=== PATIENT | female | born 1970 | race African-American/Black ===

== ENCOUNTER 2021-05-17 09:46 | Emergency (ER) | payer BC ==
[~2021-05-17] VITALS: Ht 162.6 cm; Wt 100.9 kg
[2021-05-17 10:39] LABS: BILIRUBIN,URINE NEGATIVE (NEG); CLARITY,URINE CLEAR; COLOR,URINE YELLOW; NITRITE,URINE NEGATIVE (NEG); PH,URINE 6.5 (<5.0-8.0); PROTEIN,URINE NEGATIVE (NEG-TRACE)
[2021-05-17 10:54] LABS: U PREG PATIENT NEGATIVE (NEG)
--- NOTE | 2021-05-17 10:56 | PHYS DOC ---
Past Medical History Past Medical History: CHF, Hypertension Additional Past Medical Histor: CARDIOMYOPATHY (LENOREOLIVIA Riley PUBLIC HEALTH ENGINEER) Past Surgical History: Other Additional Past Surgical Histo: DEFIBRILLATOR (DREAOLIVIA PUBLIC HEALTH ENGINEER) General Adult EDM: Chief Complaint: ABDOMINAL PAIN HPI: HPI: Patient is a 51 year old female who presents to the ED today complaining of 7 out of 10 pelvic pain, symptoms began 2 days ago. Patient is also complaining of odorous vaginal discharge and states she is concerned about STDs. Denies any chance she is . Is also complaining of dysuria. Patient denies anything specifically relieving her pain but sitting exacerbates her pelvic pain. Left (DREAOLIVIA Swain PUBLIC HEALTH ENGINEER) Review of Systems: Review of Systems: Constitutional: Denies fever or chills. [] Eyes: Denies change in visual acuity. [] HENT: Denies nasal congestion or sore throat. [] Respiratory: Denies cough or shortness of breath. [] Cardiovascular: Denies chest pain or edema. [] GI: Reports pelvic pain, odorous vaginal discharge, denies nausea, vomiting, bloody stools or diarrhea. [] : Reports dysuria Musculoskeletal: Denies back pain or joint pain. [] Integument: Denies rash. [] Neurologic: Denies headache, focal weakness or sensory changes. [] Psychiatric: Denies depression or anxiety. [] (OLIVIA SHEPARD PUBLIC HEALTH ENGINEER) Heart Score: C/O Chest Pain: N/A Risk Factors: Risk Factors: DM, Current or recent (<one month) smoker, HTN, HLP, family history of CAD, obesity. Risk Scores: Score 0 - 3: 2.5% MACE over next 6 weeks - Discharge Home Score 4 - 6: 20.3% MACE over next 6 weeks - Admit for Clinical Observation Score 7 - 10: 72.7% MACE over next 6 weeks - Early Invasive Strategies (OLIVIA SHEPARD PUBLIC HEALTH ENGINEER) Allergies: Allergies: Allergies Coded Allergies Type Severity Reaction Last Updated Verified latex Allergy Intermediate RASH 05/17/21 Yes (OLIVIA SHEPARD PUBLIC HEALTH ENGINEER) Physical Exam: PE: Constitutional: Well developed, well nourished, no acute distress, non-toxic appearance. [] HENT: Normocephalic, atraumatic, bilateral external ears normal, oropharynx moist, no oral exudates, nose normal. [] Eyes: PERRLA, EOMI, conjunctiva normal, no discharge. [] Neck: Normal range of motion, no tenderness, supple, no stridor. [] Cardiovascular:Heart rate regular rhythm, no murmur [] Lungs & Thorax: Bilateral breath sounds clear to auscultation [] Abdomen: Bowel sounds normal, soft, no tenderness, no masses, no pulsatile masses. [] Pelvic exam External pelvic appears normal, cervix is visualized, closed, no CMT, no adnexal tenderness, small amount of whitish discharge in the vaginal vault Skin: Warm, dry, no erythema, no rash. [] Back: No tenderness, no CVA tenderness. [] Extremities: No tenderness, no cyanosis, no clubbing, ROM intact, no edema. [] Neurologic: Alert and oriented X 3, normal motor function, normal sensory function, no focal deficits noted. [] Psychologic: Affect normal, judgement normal, mood normal. [] (OLIVIA SHEPARD APRN) Current Patient Data: Labs: Microbiology 05/17/21 Wet Prep - Final, Complete Vital Signs: Vital Signs Date Time Temp Pulse Resp B/P (MAP) Pulse Ox O2 Delivery O2 Flow Rate FiO2 05/17/21 10:09 98.0 78 20 116/63 99 Room Air 98.0 (OLIVIA SHEPARD APRN) EKG: EKG: [] (OLIVIA SHEPARD APRN) Radiology/Procedures: Radiology/Procedures: []PROCEDURE: PELVIS W/TV EXAM: ULTRASOUND PELVIS transabdominal and transvaginal imaging INDICATION: mid pelvic pain / COMPARISON: None available. TECHNIQUE: Transabdominal and transvaginal ultrasound sonography was performed. FINDINGS: Bladder was not well-distended. Uterus and ovaries poorly visualized transabdominally. No free fluid noted. Right ovary was identified and was normal measuring 2.4 x 2.4 x 1.4 cm. There is flow in the right ovary with color imaging and Doppler. Transvaginal imaging was performed for further evaluation. Uterus measured 9 x 4.4 x 5.8 cm. There is a nabothian cysts at the cervix. Uterus is heterogeneous with a large posterior uterine leiomyoma. The endometrium was not well visualized. The endometrium in the mid body was normal at 3 mm. There is a posterior leiomyoma measuring 5.6 x 5.4 x 4.2 cm. Left ovary was identified measuring 2.8 x 1.6 x 2.1 cm. There is flow in the left ovary with color imaging and Doppler. IMPRESSION: 1. Large uterine leiomyoma. 2. Nabothian cysts at the cervix. 3. Normal ovaries. Electronically signed by: Rian Marcelino MD (05/17/2021 11:35 AM) [facility] DICTATED and SIGNED BY: RIAN MARCELINO MD DATE: 05/17/21 [id number] (OLIVIA SHEPARD PUBLIC HEALTH ENGINEER) Course & Med Decision Making: Course & Med Decision Making Pertinent Labs and Imaging studies reviewed. (See chart for details) This is a 51-year-old female patient presented to the ED today complaining of pelvic pain, odorous vaginal discharge, symptoms for 2 days. Also complaining of dysuria. Patient refused prophylaxis STD treatment. Negative urine test, UA positive for UTI. Discharged on cephalexin. Wet prep negative for clue cells. Pelvic ultrasound noted for leiomyoma and nabothian cyst. Provided OB for follow-up. Discharge to home (OLIVIA SHEPARD PUBLIC HEALTH ENGINEER) Course & Med Decision Making I have reviewed and was available for consultation in the emergency department for this patient that was seen by midlevel provider. Agree with plan of care. Magy Gomez DO (MAGY GOMEZ DO) Lotus Disclaimer: Lotus Disclaimer: This electronic medical record was generated, in whole or in part, using a voice recognition dictation system. (OLIVIA SHEPARD PUBLIC HEALTH ENGINEER) Departure Departure Impression: Primary Impression: Fibroid, uterine Qualified Codes: D25.9 - Leiomyoma of uterus, unspecified Additional Impressions: Urinary tract infection Qualified Codes: N39.0 - Urinary tract infection, site not specified Nabothian cyst Disposition: HOME / SELF CARE / HOMELESS Condition: STABLE Referrals: ROSY LANCASTER MD (PCP) Follow-up in 1 week SARAH GALO MD follow up in one week Patient Instructions: Fibroids, [id number], Urinary Tract Infection Additional Instructions: You were evaluated in the emergency room and noted to have urinary tract infection, please take the prescribed antibiotics until completed. Take Tylenol or Motrin for the pelvic pain. Your pelvic ultrasound was noted for fibroids. Please see an SHOWER ROOM ATTENDANT for this Scripts Cephalexin (CEPHALEXIN) 500 Mg Tablet 1 TAB PO BID, #14 TAB Prov: OLIVIA SHEPARD APRN 05/17/21 OLIVIA SHEPARD APRN May 17, 2021 10:56 MAGY GOMEZ DO May 17, 2021 15:19
[2021-05-17 10:58] LABS: BACTERIA,URINE FEW /HPF (0-FEW)
--- NOTE | 2021-05-17 11:37 | RAD ---
EXAM: ULTRASOUND PELVIS transabdominal and transvaginal imaging INDICATION: mid pelvic pain / COMPARISON: None available. TECHNIQUE: Transabdominal and transvaginal ultrasound sonography was performed. FINDINGS: Bladder was not well-distended. Uterus and ovaries poorly visualized transabdominally. No free fluid noted. Right ovary was identified and was normal measuring 2.4 x 2.4 x 1.4 cm. There is flow in the r ight ovary with color imaging and Doppler. Transvaginal imaging was performed for further evaluation. Uterus measured 9 x 4.4 x 5.8 cm. There is a nabothian cysts at the cervix. Uterus is heterogeneous with a large posterior uterine leiomyoma. T he endometrium was not well visualized. The endometrium in the mid body was normal at 3 mm. There is a posterior leiomyoma measuring 5.6 x 5.4 x 4.2 cm. Left ovary was identified measuring 2.8 x 1.6 x 2.1 cm. There is flow in the left ovary with color im aging and Doppler. IMPRESSION: 1. Large uterine leiomyoma. 2. Nabothian cysts at the cervix. 3. Normal ovaries. Electronically signed by: Rian Marcelino MD (05/17/2021 11:35 AM) [facility]
[2021-05-17] MEDS ORDERED: CEPH500T PO (12:51)
[2021-05-17 13:20] VITALS: BP 139/80
[2021-05-18 21:24] LABS: GC PROBE Negative (Negative)
== END 2021-05-17 13:11 | disposition home or self-care (01) ==
LOC: ER 09:46
DX: D25.9 Leiomyoma of uterus, unspecified (principal); N39.0 Urinary tract infection, site not specified; N88.8 Other specified noninflammatory disorders of cervix uteri; I11.0 Hypertensive heart disease with heart failure; I50.9 Heart failure, unspecified; Z91.040 Latex allergy status
CPT/HCPCS: 76830; 76856; 81001; 81025; 87086; 87491; 87591; 99285; Q0111